=== PATIENT | male | born 1955 | race Caucasian/White ===

== ENCOUNTER 2022-01-14 09:22 | Outpatient (CLI) | payer OTHER, SELFPAY ==
--- NOTE | ~2022-01-14 | US_ITS ---
EXAMINATION: US aorta [facility] scr[facility] DATE: 01/14/2022 10:17 INDICATION: Dominant aortic aneurysm screening TECHNIQUE: Grayscale, color Doppler, and pulsed Doppler images of the aorta and common iliac arteries were obtained. COMPARISON: None. FINDINGS: The proximal aorta measures 2.9 cm AP. The mid aorta measures 2.2 cm AP. The distal aorta measures 2. 6 cm AP. The right common iliac artery measures 1.2 cm. The left common iliac artery measures 1.2 cm. IMPRESSION: 1. Normal caliber abdominal aorta. Reviewed, dictated and finalized at location A.
== END 2022-01-14 09:23 | disposition home or self-care (01) ==
PROVIDERS: PCP Nurse Practitioner Family; Visit Provider Nurse Practitioner Family
DX: Z13.6 Encounter for screening for cardiovascular disorders (principal)
CPT/HCPCS: 76706

== ENCOUNTER 2022-11-07 17:38 | Emergency (ER) | payer OTHER, SELFPAY ==
--- NOTE | ~2022-11-07 | XR_ITS ---
EXAM: XR shoulder RT min 2V DATE: 11/07/2022 18:30 HISTORY: shoulder pain . COMPARISON: None available. FINDINGS: Normal mineralization. No fracture or dislocation. No lytic or blastic lesion. Calcified h ilar lymph node. Moderate AC joint and glenohumeral joint osteoarthritis. No erosion or periosteal ch chris. Soft tissues within normal limits. IMPRESSION: No acute osseous finding in the right shoulder. Reviewed, dictated and finalized at location K.
--- NOTE | ~2022-11-07 | XR_ITS ---
EXAM: XR elbow RT min 3V DATE: 11/07/2022 18:30 HISTORY: elbow pain after fall . COMPARISON: None available. FINDINGS: Normal mineralization. No fracture or dislocation. No lytic or blastic lesion. Mild degene rative change at the elbow joint. Olecranon enthesopathy. No erosion or periosteal change. Soft tissu es within normal limits. IMPRESSION: No acute osseous finding in the right elbow. Reviewed, dictated and finalized at location K.
[2022-11-07 17:44] VITALS: BP 148/77; PULSE 65; RESP 17; TEMP 36.7; O2SAT 96
[2022-11-07 18:05] VITALS: PULSE 63
--- NOTE | 2022-11-07 18:10 | ED.GENADULT ---
HPI - General Adult General Chief complaint: Trauma Stated complaint: 8 ft fall from scacorying -R shoulder/elbow injury Time Seen by Provider: 11/07/22 17:58 History of Present Illness HPI narrative: 67-year-old male presented emerged department for evaluation of right shoulder pain after having a fall from scaffolding. Patient states that the scaffolding rolled while he was standing on it causing him to fall and land on his right shoulder. Patient denies striking his head denies any loss of consciousness. Patient does not take any blood thinners. Patient does complain of right shoulder and right elbow pain. Patient denies any other pain or injury. Patient was emphatic about not striking his head. Related Data Allergies Allergy/AdvReac Type Severity Reaction Status Date / Time No Known Allergies Allergy Unverified 11/07/22 17:39 Review of Systems Review of Systems: All systems reviewed & are unremarkable except as noted in HPI and below Exam Narrative: APPEARANCE: Well appearing, no pain, no distress, well-nourished. HEAD: normocephalic, atraumatic. EYES: PERRLA/EOMI, conjunctivae clear. NOSE: Normal no drainage EARS:TMS clear with good light reflex. THROAT: Pharynx clear, no exudate. NECK: Supple. No adenopathy, no masses. RESPIRATORY: Airway patent, respirations nonlabored. Clear to auscultation bilaterally, no rales, rhonchi, wheezing. CARDIOVASCULAR: Regular rate and rhythm without murmurs rubs or gallops. ABDOMINAL: Soft, nontender, nondistended, normal bowel sounds MUSCULOSKELETAL: Moves all extremities. Strength/ROM intact, No edema, No calf tenderness. NEURO: Alert. Cranial nerves II through XII intact. Good gait. Good coordination SKIN: Abrasion to right elbow Course Course Emergency Course: 67-year-old male presented the ED for evaluation of right shoulder right elbow pain. X-rays were negative for acute fractures or dislocations. Patient was provided a pouch sling for comfort. Abrasions were cleansed, treated with antibiotic ointment and dressed. Patient was updated the results of his work-up and was encouraged of close follow-up with his primary care physician. All questions and concerns were addressed and patient was comfortable with the plan for discharge and close follow-up. Vital Signs Vital signs: Vital Signs Temperature 98.0 F 11/07/22 17:44 Pulse Rate 65 08/18/23 17:44 Respiratory Rate 17 11/07/22 17:44 Blood Pressure 148/77 H 11/07/22 17:44 Pulse Oximetry 96 11/07/22 17:44 Oxygen Delivery Room Air 11/07/22 17:44 Temperature 98.0 F 11/07/22 17:44 Pulse Rate 63 11/07/22 18:05 Respiratory Rate 17 11/07/22 17:44 Blood Pressure 148/77 H 11/07/22 17:44 Pulse Oximetry 96 11/07/22 17:44 Oxygen Delivery Room Air 11/07/22 17:44 Medical Decision Making Differential Diagnosis Differential Diagnosis: Shoulder fracture, shoulder dislocation, AC joint separation, elbow fracture, skin tear Vital Signs Vital Signs: Vital Signs Temperature 98.0 F 11/07/22 17:44 Pulse Rate 65 11/07/22 17:44 Respiratory Rate 17 11/07/22 17:44 Blood Pressure 148/77 H 11/07/22 17:44 Pulse Oximetry 96 11/07/22 17:44 Oxygen Delivery Room Air 11/07/22 17:44 Temperature 98.0 F 11/07/22 17:44 Pulse Rate 63 11/07/22 18:05 Respiratory Rate 17 11/07/22 17:44 Blood Pressure 148/77 H 11/07/22 17:44 Pulse Oximetry 96 11/07/22 17:44 Oxygen Delivery Room Air 11/07/22 17:44 Imaging Data Radiologist's impression: Impressions Elbow X-Ray 11/07/22 18:34 IMPRESSION: No acute osseous finding in the right elbow. Shoulder X-Ray 11/07/22 18:35 IMPRESSION: No acute osseous finding in the right shoulder. Discharge Plan Discharge Clinical Impression: Acute shoulder pain, Skin tear Patient Disposition: Home, Self-Care Condition: Stable Instructions: Antibiotic Form, Rotator Cuff Injury (ED), How to Use
--- NOTE | 2022-11-07 19:17 | PC.NURSE ---
Report received from MABEL Miller. Assumed care of patient at this time.
== END 2022-11-07 19:51 | disposition home or self-care (01) ==
PROVIDERS: Emergency Provider Emergency Medicine; PCP Nurse Practitioner Family
DX: S49.91XA Unspecified injury of right shoulder and upper arm, initial encounter (principal); S51.011A Laceration without foreign body of right elbow, initial encounter; W12.XXXA Fall on and from scaffolding, initial encounter
CPT/HCPCS: 73030; 73080; 99284; A4565